=== PATIENT | male | born 1960 | race Asian ===

== ENCOUNTER 2021-07-02 17:00 | Inpatient (IN) | payer MEDICAID, SELFPAY ==
[~2021-07-02] VITALS: Ht 170.2 cm; Wt 81.4 kg
[2021-07-02 17:05] VITALS: BP_SYST 95
--- NOTE | 2021-07-02 17:05 | NUR ---
PT TRIAGED AND AWAITING AVAILABLE BED IN MAIN ED
--- NOTE | 2021-07-02 17:05 | NUR ---
Tara santizo in ED - 07/02/21 at 1735 by [email or web address] PT TRIAGED AND PLACED IN LOBBY FOR AVAILABLE BED IN MAIN ED
--- NOTE | 2021-07-02 17:20 | NUR ---
Pt triaged and placed in room 8 for evaluation.
--- NOTE | 2021-07-02 17:30 | NUR ---
Pt BIBA re c/o c/p and [employer]B [employer]. Upon arrival, pt reporting throat dryness only. SpO2 99% on trach to room air. Awake, alert and oriented x 3. Awaiting MD harris.
--- NOTE | 2021-07-02 17:53 | NUR ---
Dr Fuentes to bedside to assess patient
[2021-07-02] MEDS ORDERED: ASPIRIN 81 MG TAB.CHEW PO ONE (18:00)
--- NOTE | 2021-07-02 18:31 | NUR ---
CXR being done at bedside
[2021-07-02 18:36] LABS: CALCIUM 9.1 mg/dL (8.4-11.0); CREATININE 0.56 mg/dL (0.55-1.30)
[2021-07-02 18:42] LABS: BASOPHILS % (AUTO) 0.7 % (0.0-2.0); EOSINOPHILS # (AUTO) 0.1 K/uL (0.0-0.4); EOSINOPHILS % (AUTO) 0.7 % (0.0-4.0); HEMATOCRIT 35.6 % (36-54); LYMPHOCYTES # (AUTO) 2.3 K/uL (1.0-5.5); LYMPHOCYTES % (AUTO) 32.6 % (20.5-51.5); MEAN CORPUSCULAR HEMOGLOBIN 29 pg (27-31); MEAN CORPUSCULAR HGB CONC 34 % (32-36); MEAN CORPUSCULAR VOLUME 86 fL (79.0-98.0); MONOCYTES # (AUTO) 0.5 K/uL (0.0-1.0); MONOCYTES % (AUTO) 7.7 % (1.7-9.3); NEUTROPHILS # (AUTO) 4.1 K/uL (1.8-7.7); NEUTROPHILS % (AUTO) 58.3 % (40.0-70.0); PLATELET COUNT (AUTO) 363 K/uL (130-430); RED BLOOD CELL COUNT(AUTO) 4.15 MIL/uL (4.2-6.2); RED CELL DISTRIBUTION WIDTH 14.4 % (9.0-15.0); WHITE BLOOD COUNT (AUTO) 7.1 K/uL (4.8-10.8)
[2021-07-02 18:45] LABS: ALBUMIN 3.2 g/dL (3.4-4.8); TOTAL BILIRUBIN 0.2 mg/dL (0.0-1.0)
--- NOTE | 2021-07-02 18:52 | NUR ---
# 20 gauge angiocath placed to R forearm. Use of asceptic technique. Opsite placed over site. Blood return noted. Blood for lab drawn from site. Flushed with 10 cc of normal saline. No evidence of infiltration noted. Patient tolerated well.
--- NOTE | 2021-07-02 19:04 | NUR ---
Report given to Keli BE to assume care of patient
--- NOTE | 2021-07-02 19:40 | NUR ---
PT PLACED ON BEDPAN AND GIVEN URINAL TO VOID. PT INCONT IN BRIEF. WET BRIEF REMOVED.
[2021-07-02 19:48] LABS: PROTHROMBIN TIME 10.6 SECS (9.5-12.5)
--- NOTE | 2021-07-02 20:20 | NUR ---
VERONICA SWAB COMPLETED BY RN AND SENT TO LAB.
[2021-07-02] MEDS ORDERED: TYLL650 GT (20:54)
[2021-07-02] MEDS ORDERED: METF-518 GT (20:54)
[2021-07-02] MEDS ORDERED: CLOP75TA32 PO (20:54)
[2021-07-02] MEDS ORDERED: INSU100V46 (20:54)
[2021-07-02] MEDS ORDERED: ATOR40TA68 PO (20:54)
[2021-07-02] MEDS ORDERED: CHLO237L21 TP (20:54)
[2021-07-02] MEDS ORDERED: INSU100V11 SQ (20:54)
[2021-07-02] MEDS ORDERED: FAMO-132 GT (20:54)
[2021-07-02] MEDS ORDERED: NITR0.4T47 SL (20:54)
[2021-07-02] MEDS ORDERED: LACT10SO6 GT (20:54)
[2021-07-02] MEDS ORDERED: LISI10TA29 GT (20:54)
[2021-07-02] MEDS ORDERED: ALBU8.5H8 INH (20:54)
[2021-07-02] MEDS ORDERED: DOCU-144 GT (20:54)
[2021-07-02] MEDS ORDERED: TYLL650 PO (20:54)
[2021-07-02] MEDS ORDERED: LIP40 GT (20:55)
--- NOTE | 2021-07-02 20:56 | NUR ---
MED REC AND PT BELONGINGS COMPLETED BY HAILE
[2021-07-02] MEDS ORDERED: ACETAMINOPHEN 650 MG/20.3 ML UDC GT PRN (21:45)
--- NOTE | 2021-07-02 21:45 | NUR ---
RT AT BEDSIDE SUCTIONING PT.
--- NOTE | 2021-07-02 22:43 | NUR ---
Patient will be admitted to care of DR DUKES. Admitted to TELE unit. Will go to room 130A. Belongings list completed. Complete and up to date summary report printed. SBAR report to be given at bedside with opportunity for questions.
--- NOTE | 2021-07-02 22:45 | NUR ---
Patient's code status is FULL CODE paperwork completed and placed in chart.
--- NOTE | 2021-07-02 23:03 | NUR ---
ADMISSION NOTE Received patient from ER via gurney. Patient admitted with diagnosis of CHEST PAIN. Patient is awake, alert, oriented X 4. Patient oriented to hospital room, call light, toileting, pain management and safety-teach back done. Patient informed that their room number is 130A. Personal belongings checked and Belongings List documented. Call light within reach.
[2021-07-02 23:30] VITALS: BP_SYST 103
[2021-07-03 00:13] VITALS: BP_SYST 102
--- NOTE | 2021-07-03 04:48 | NUR ---
Consultation Paged Reason for Consultation: Chest Pain Was consult called: Y Person who was notified: Ketty Consulting Physician: Dr. Cash Ordering Physician: Dr. Diana
--- NOTE | 2021-07-03 06:47 | NUR ---
Closing note Pt awake resting in bed watching tv. No s/s of respiratory distress. Breathing even and unlabored. Suctioned as needed. GT is intact and patent with feeding running at ordered rate. IV site is intact and patent saline lock. All needs met throughout shift. Fall and safety precautions in place with bed in lowest position, bed alarm on, and call light within reach
[2021-07-03] MEDS ORDERED: LACTULOSE 20 GM/30 ML UDC GT PRN (07:00)
[2021-07-03 07:58] VITALS: BP_SYST 90
[2021-07-03] MEDS ORDERED: metFORMIN HCL 500 MG TABLET GT SCH (08:00)
[2021-07-03] MEDS ORDERED: METOPROLOL TARTRATE 25 MG TABLET PO ONE (09:00)
[2021-07-03] MEDS ORDERED: CLOPIDOGREL BISULFATE 75 MG TABLET GT SCH (09:00)
[2021-07-03] MEDS ORDERED: ASPIRIN 81 MG TAB.CHEW PO ONE (09:00)
[2021-07-03] MEDS ORDERED: LISINOPRIL 10 MG TABLET (PRINIVIL) GT SCH (09:00)
[2021-07-03 09:03] VITALS: BP_SYST 90
[2021-07-03] MEDS: FAMOTIDINE 20 MG TABLET GT SCH ×2 (10:22→20:28)
[2021-07-03] MEDS: DOCUSATE SODIUM 100 MG/10 ML UDC GT SCH ×2 (10:22→20:27)
[2021-07-03 12:45] VITALS: BP_SYST 101
--- NOTE | 2021-07-03 15:27 | NUR ---
ST EVALUATION COMPLETED. ST TX NOT INDICATED AT THIS TIME. RECOMMEND PO DIET OF MECHANICAL SOFT FINELY CHOPPED/NECTAR THICK LIQUIDS WITH 1:1 SUPERVISION AND ASPIRATION PRECAUTIONS. Addendum: 07/03/21 at [address] PM[facility] IN PLACE FOR ALL INTAKE
[2021-07-03 17:15] VITALS: BP_SYST 109
[2021-07-03 17:17] VITALS: BP_SYST 109
[2021-07-03] MEDS ORDERED: ATORVASTATIN 20 MG TABLET GT SCH (21:00)
[2021-07-03] MEDS ORDERED: METOPROLOL TARTRATE 25 MG TABLET PO SCH (21:00)
[2021-07-04] MEDS ORDERED: ASPIRIN 81 MG TAB.CHEW PO SCH (09:00)
== END 2021-07-03 23:00 | DRG 198 ==
LOC: SED 17:00 → STU 21:38
PROVIDERS: ADMIT Internal Medicine; ATTEND Internal Medicine
DX: R07.89 Other chest pain (principal); I25.10 Atherosclerotic heart disease of native coronary artery without angina pectoris; J96.10 Chronic respiratory failure, unspecified whether with hypoxia or hypercapnia; Z93.0 Tracheostomy status; D64.9 Anemia, unspecified; E11.9 Type 2 diabetes mellitus without complications; I10 Essential (primary) hypertension; Z20.822 Contact with and (suspected) exposure to COVID-19; K21.9 Gastro-esophageal reflux disease without esophagitis; Z86.73 Personal history of transient ischemic attack (TIA), and cerebral infarction without residual deficits; Z87.891 Personal history of nicotine dependence; Z95.5 Presence of coronary angioplasty implant and graft; Z79.4 Long term (current) use of insulin; Z79.899 Other long term (current) drug therapy; Z93.1 Gastrostomy status
CPT/HCPCS: 36415; 71045; 80053; 83605; 83880; 84484; 85025; 85379; 85610-TC; 87040; 87081; 92610-GN; 93005; 93306; 94760; 99285; G0378